=== PATIENT | male | born 1980 | race Caucasian/White ===

== ENCOUNTER 2020-02-14 16:38 | Emergency (ER) | payer OTHER ==
[~2020-02-14] VITALS: Ht 190.5 cm; Wt 91.2 kg
[~2020-02-14 16:38] MED LIST: AMBIEN 5 MG TABL5 M1 PO; HYDRALAZINE 2525 MG PO; HYDROXYZINE HCL10 M1 PO; KEFLEX500 MG PO; LEXAPRO 10 MG T10 MG PO; NORCO 5-325 TA1 EACH PO; PENICILLIN VK500 M1 PO; TENORMIN25 MG PO; VALIUM5 MG PO
[2020-02-14] MEDS ORDERED: MULTI VITAMIN1 EACH PO (17:15)
[2020-02-14 17:19] LABS: ABSOLUTE BASOPHILS 0.1 thou/uL (0.0-0.2); ABSOLUTE EOSINOPHILS 0.1 thou/uL (0.0-0.7); ABSOLUTE LYMPHOCYTES 3.3 thou/uL (0.8-5.3); ABSOLUTE MONOCYTES 0.6 thou/uL (0.0-1.2); ABSOLUTE NEUTROPHILS 3.2 thou/uL (1.6-8.1); EOSINOPHILS 1.6 %; HEMATOCRIT 40.9 % (42.0-52.0); HEMOGLOBIN 14.1 gm/dL (14.0-18.0); LYMPHOCYTES 45.9 %; MCH 30.3 pg (26.0-34.0); MCHC 34.5 g/dL (28.0-37.0); MCV 87.9 fL (80.0-100.0); MONOCYTES 7.7 %; MPV 6.6 fl. (7.2-11.1); NUCLEATED RBCS 0 /100WBC; PLATELET COUNT* 318 thou/uL (150-400); POLYS 43.8 %; RBC 4.65 mil/uL (4.50-6.00); RDW-CV 13.3 % (10.5-14.5); WBC 7.2 thou/uL (4.0-11.0)
[2020-02-14 17:26] LABS: CALCIUM 9.1 mg/dL (8.5-10.1); CREATININE 1.1 mg/dL (0.6-1.3); POTASSIUM 3.8 mmol/L (3.5-5.1)
[2020-02-14 17:30] LABS: APTT 27.1 Seconds (25.0-31.3); INR 1.1; PROTIME 11.4 Seconds (9.20-11.50)
[2020-02-14 17:39] LABS: ALBUMIN 4.1 g/dL (3.4-5.0); CK-MB MASS 1.1 ng/mL (<0.5-3.6); TOTAL BILIRUBIN 1.1 mg/dL (<0.1-1.0); TOTAL PROTEIN 7.4 g/dL (6.4-8.2)
[2020-02-14 18:06] VITALS: BP 117/81
--- NOTE | 2020-02-15 13:21 | EKG ---
[place] [address] ELECTROCARDIOGRAM REPORT Name: INO JOHNSON Room: [facility]#: [id number] Admission: 02/14/20 Attend Phys: Discharge: 02/14/20 Date of : 76 Date of Service: 02/14/20 1645 Report #: [id number] THIS REPORT FOR: //name// [facility] ED Test Date: 2020-02-14 Test Time: 16:45:48 Pat Name: INO JOHNSON Department: Room: Gender: Orchestra Teacher: : 1980 Requested By: Aurelio James Order Number: [id number] MD: Richi Maya Measurements Intervals [place] Rate: 68 P: 39 SD: 136 QRS: 62 QRSD: 98 T: 41 QT: 398 QTc: 424 Interpretive Statements Sinus rhythm Compared to ECG 12/06/2016 04:22:40 No significant changes Electronically Signed On 02-15-2020 13:21:17 CDT by Richi Maya [email or web address] <ELECTRONICALLY SIGNED> By: Richi Maya MD, [facility] 02/15/20 1321 1645 44 Richi Maya MD, FACC /EPI
== END 2020-02-14 18:07 | disposition home or self-care (01) ==
LOC: M.ERS 16:38
PROVIDERS: Family Medicine
DX: R07.89 Other chest pain (principal)

== ENCOUNTER 2020-04-27 10:02 | Emergency (ER) | payer OTHER ==
[~2020-04-27] VITALS: Ht 190.5 cm; Wt 83.9 kg
[~2020-04-27 10:02] MED LIST changes: +MULTI VITAMIN1 EACH PO
[2020-04-27 10:25] LABS: HEMOGLOBIN 14.4 gm/dL (14.0-18.0); MCH 29.9 pg (26.0-34.0); MCHC 34.2 g/dL (28.0-37.0); MCV 87.4 fL (80.0-100.0); MPV 6.6 fl. (7.2-11.1); NUCLEATED RBCS 0 /100WBC; PLATELET COUNT* 320 thou/uL (150-400); RBC 4.81 mil/uL (4.50-6.00); WBC 18.6 thou/uL (4.0-11.0)
[2020-04-27 10:30] LABS: CALCIUM 9.4 mg/dL (8.5-10.1); CREATININE 1.3 mg/dL (0.6-1.3); POTASSIUM 3.6 mmol/L (3.5-5.1)
[2020-04-27 10:41] LABS: ALBUMIN 4.4 g/dL (3.4-5.0); MAGNESIUM 1.9 mg/dL (1.8-2.4); TOTAL BILIRUBIN 1.9 mg/dL (<0.1-1.0); TOTAL PROTEIN 8.2 g/dL (6.4-8.2)
[2020-04-27 11:03] LABS: ABSOLUTE NEUTROPHILS 16.6 thou/uL (1.6-8.1); ANISOCYTOSIS 1+; PLATELET ESTIMATE ADEQUATE; POIKILOCYTOSIS 1+
[2020-04-27] MEDS ORDERED: ZPAK PO (12:52)
[2020-04-27 13:18] VITALS: BP 118/74
--- NOTE | 2020-04-28 12:10 | EKG ---
[place] [address] ELECTROCARDIOGRAM REPORT Name: INO JOHNSON Room: 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[place] : 1980 Requested By: Luc Reich Order Number: [id number] MD: Alvarado Munguia Measurements Intervals [place] Rate: 96 P: 37 [place]: 138 QRS: 73 QRSD: 91 T: 22 QT: 355 QTc: 449 Interpretive Statements Sinus rhythm RSR' in V1 or V2, right VCD or RVH Baseline wander in lead(s) V4 Compared to ECG 02/14/2020 16:45:48 RSR' in V1 or V2 now present Electronically Signed On 04-28-2020 12:10:44 CDT by Alvarado Munguia [email or web address] <ELECTRONICALLY SIGNED> By: Alvarado Munguia MD, FACC 04/28/20 1210 1007 1007 Alvarado Munguia MD, [facility] /EPI
--- NOTE | 2020-04-28 12:11 | EKG ---
[place] [address] ELECTROCARDIOGRAM REPORT Name: INO JOHNSON Room: [facility].#: [id number] Admission: 04/27/20 Attend Phys: Discharge: 04/27/20 Date of : 76 Date of Service: 04/27/20 1211 Report #: [id number] THIS REPORT FOR: //name// [facility] ED Test Date: 2020-04-27 Test Time: 12:11:17 Pat Name: INO JOHNSON Department: Room: Gender: Client Services Specialist: [facility] : 1980 Requested By: Luc Reich Order Number: [id number] MD: Alvarado Munguia Measurements Intervals [place] Rate: 78 P: 40 MO: 143 QRS: 68 QRSD: 90 T: 44 QT: 379 QTc: 432 Interpretive Statements Sinus rhythm RSR' in V1 or V2, right VCD or RVH Baseline wander in lead(s) V3 Compared to ECG 04/27/2020 10:07:00 No significant changes Electronically Signed On 04-28-2020 12:11:40 CDT by Alvarado Munguia [email or web address] <ELECTRONICALLY SIGNED> By: Alvarado Munguia MD, FACC 04/28/201210 10 10 Alvarado Munguia MD, [facility] /EPI
== END 2020-04-27 13:19 | disposition home or self-care (01) ==
LOC: M.ERS 10:02
PROVIDERS: Emergency Medicine Emergency Medical Services
DX: R07.89 Other chest pain (principal); Z20.828 Contact with and (suspected) exposure to other viral communicable diseases